=== PATIENT | male | born 1985 | race Caucasian/White ===

== ENCOUNTER 2018-11-08 07:36 | Outpatient (CLI) | payer OTHER ==
[2018-11-08] MEDS ORDERED: GADOBUTROL 15 MMOL/15 ML VIAL ONE (07:47)
[2018-11-08] MEDS ORDERED: GADOBUTROL 15 MMOL/15 ML VIAL IVP ONE (08:39)
--- NOTE | 2018-11-08 16:10 | MRI Report ---
Reason: OTHER SYMPTOMS SIGN INVOLVING THE NERVOUS SYSTEM Procedure Date: 11/08/2018 Accession Number: [id number] / [id number] Procedure: MRI - Brain W/WO CPT Code: FULL RESULT: EXAM: MRI BRAIN WITHOUT AND WITH CONTRAST EXAM DATE: 11/08/2018 08:41 AM. CLINICAL HISTORY: ?Recurrent RLE weakness/paresthesia. Intermittent monocular vision. Focal deficits on physical exam. COMPARISON: None. TECHNIQUE: Multiplanar, multisequence T1-weighted and fluid-sensitive MR sequences of the brain were performed. Sequences optimized for routine evaluation. Other: None. IV Contrast: . FINDINGS: Brain Volume: Normal for age. Parenchyma: No acute hemorrhage, mass, or infarct. There is a single focus of left frontal white matter change, within normal limits. No findings suspicious for demyelinating disease. No abnormal enhancement. Ventricles/Cisterns: No hydrocephalus. No abnormal extra-axial fluid collection or hemorrhage. Orbits: Symmetric and unremarkable. Sella Turcica: Unremarkable. IAC: Symmetric and unremarkable. Vasculature: Normal signal flow void is seen in the major arterial structures at the skull base. The dural sinuses are patent and enhance normally. Sinuses: No acute sinus disease. Bones: No focal pathologic appearing marrow signal changes. Other: None. IMPRESSION: 1. Normal brain MRI. [facility]
== END 2018-11-08 07:37 | disposition home or self-care (01) ==
LOC: DI 07:36
PROVIDERS: ATTEND Student in an Organized Health Care Education/Training Program
DX: R29.818 Other symptoms and signs involving the nervous system (principal)
CPT/HCPCS: 70553; A9585

== ENCOUNTER 2018-11-17 17:03 | Outpatient (CLI) | payer OTHER ==
[2018-11-17] MEDS ORDERED: GADOBUTROL 10 MMOL/10 ML VIAL ONE (18:27)
[2018-11-17] MEDS ORDERED: GADOBUTROL 10 MMOL/10 ML VIAL IVP ONE (18:47)
--- NOTE | 2018-11-21 08:30 | MRI Report ---
Reason: SYMPTOMS AND SIGNS INVOLVING THE NERVOUS SYSTEM Procedure Date: 11/17/2018 Accession Number: [id number] / [id number] Procedure: MRI - Shoulder RT W/WO CPT Code: FULL RESULT: MRI OF THE RIGHT BRACHIAL PLEXUS, WITH AND WITHOUT IV CONTRAST CLINICAL NOTE: Right upper limb pain, numbness and tingling. TECHNIQUE: Axial, coronal and sagittal T1, STIR, T2 weighted scans were obtained followed by postcontrast fat-saturated T1-weighted scans. 10 mL of intravenous Gadavist was administered. COMPARISON: None. FINDINGS: The brachial plexus appears unremarkable. The right and left axilla and infraclavicular regions appear symmetric. There is no abnormal enhancement. The visible cervical spine appears unremarkable. The right sternoclavicular joint also appears unremarkable. The visible soft tissues of the mediastinum, lungs and makeup. Unremarkable. IMPRESSION: No significant abnormality identified.
== END 2018-11-17 17:04 | disposition home or self-care (01) ==
LOC: DI 17:03
PROVIDERS: ATTEND Student in an Organized Health Care Education/Training Program
DX: R29.818 Other symptoms and signs involving the nervous system (principal)
CPT/HCPCS: 73223; A9585

== ENCOUNTER 2020-10-31 15:44 | Outpatient (CLI) | payer OTHER ==
[2020-10-31 15:43] VITALS: BP 111/79
--- NOTE | 2020-10-31 15:43 | SLEEP CARE CONSULTATION ---
Information from patient questionnaire entered by Mariza Lanier. I have reviewed and concur with the information entered by Mariza Lanier. This document represents the service I personally performed and the decisions made by me, Riddhi Zimmer ARNP. History of Present Illness Service Date and Time: 10/31/2020 1500 Reason for Visit: New patient Chief Complaint: reports: Unrefreshed sleep, Excessive daytime sleepiness, Frequent awakenings at night Date of Onset: 5 years Usual bedtime: 10 pm Time it takes to fall asleep: 5 - 10 minutes Snores at night: No Observed to quit breathing while asleep: No Sleeps alone due to snoring: No Number of times waking at night: 3 Reasons for waking at night: reports: Other (unknown reasons). denies: Choking, Snoring, Gasping for air Toss, Turn, or Twitch while sleeping: No Recalls having dreams: Yes (has lucid dreams, fatigue him) Usually gets out of bed at: 5:45 am Feels refreshed in the morning: No Morning headache: No Sleepy or fatigued during the day: Yes Ever fallen asleep while driving: No Takes day naps: No Dreams during day naps: Yes Prior sleep studies: No Additional HPI information: I had the pleasure of seeing YUNIER ARTEAGA today regarding the possibility of him having a sleep disorder. His current complaints are frequent night awakenings and unrefreshed sleep. He states about 3-4 times a night he will wake up for no apparent reason and then go back to sleep. He has not been told that he snores or has any pauses in breathing. He has not woke up gasping or choking for air. He kaur have some tingling in both arms on ulnar side for last 6 months. He has a history of a possible TIA and diagnosed with Carpal Tunnel. There is no family history of sleep apnea. - Parasomnia Symptoms Ever been unable to move upon waking from sleep: No Walks in sleep: No Talks in sleep: No Ever acted out dreams in sleep: No Ever felt weak in the knees when startled or emotional: Yes (occasional, has not fallen to ground) Bothered by creepy, crawly, restless sensations in legs: No Problems with memory or concentration: No Subjective Initial Thatcher Sleepiness Scale score: 11 (in 2020) Past Medical History Past Medical History: reports: Other (had TIA in 09/2018; carpal tunnel) Social History The patient's occupation is a Active . Patient is Single and lives in [place]. Have you smoked in the past 12 months: No Alcohol use: Yes Alcohol amount and frequency: 1-2 beers 2-3 times a week Caffeine use: Yes Caffeine amount and frequency: 24 oz coffee every morning Family History Family history of sleep disordered breathing: No Allergies and Home Medications Drug allergies reviewed: Yes (NKDA) Home medication list reviewed: Yes (no medications or supplements) Review of Systems Weight gain over past 5 years: 15 Cardiovascular: denies: high blood pressure Gastrointestinal: denies: heartburn Neurological: denies: headaches Psychiatric: denies: Attention Deficit Hyperactivity, anxiety, depression Ear/Nose/Throat: denies: tonsillectomy Endocrine: denies: thyroid disease Immunologic: denies: allergies to food or environment Physical Exam Blood Pressure: 111/79 Cuff size: wrist Heart Rate: 65 O2 Saturation: 93 Height: 5 ft 10 in Weight: 221 lb Body Mass Index: 31.7 BMI Classification: Obese Neck circumference: 15.5 (inches) Mouth and throat: narrow oropharynx Soft palate: long Hard palate: normal Uvula: normal Uvula visualization: 50% Mallampati Class II Tongue: enlarged in size with teeth amador on lateral edges Tonsils: 1+ Neck: normal w/o lymphadenopathy or thyromegaly Heart: regular rate and rhythm Lungs: clear bilaterally Impression and Plan 1. Suspected Obstructive Sleep Apnea-Hypopnea Syndrome, as suggested by a history of frequent awakening during the night, unrefreshed sleep, and excessive daytime sleepiness. Narrow oropharynx and obesity are common predisposing factors for obstructive sleep apnea-hypopnea syndrome. I recommend proceeding to polysomnography to confirm the diagnosis and to assess severity. If the patient has significant sleep disordered breathing, a manual CPAP titration study will also be performed to find the optimal treatment pressure. I informed the patient of what the sleep studies involve and after some discussion, obtained agreement to proceed. The pathophysiology of obstructive sleep apnea-hypopnea syndrome was discussed with the patient and health risks of cardiovascular and cerebrovascular disease if not treated. Risks of drowsy driving discussed in detail and patient advised to avoid long distance driving and to ice puller at the first sign of drowsiness. Patient agreed to plan. * Schedule polysomnography +- manual CPAP titration study and return in 1-2 weeks after the study to discuss result and initiate therapy. * Avoid long distance driving or driving when feeling sleepy. * Avoid alcohol, sedative and muscle relaxant around bedtime. * Attempt to lose weight. * Review instructions provided by trained office staff on how to prepare for the sleep study. * Return for follow-up after sleep study completed. Counseling Topics: Weight loss health impact Visit Type: In Office Time Spent with Patient (minutes): 30 Provider Statement: I spent 100% of the Face to Face Visit with the patient with greater than 50% spent counseling the patient and coordination of care.
== END 2020-10-31 15:45 | disposition home or self-care (01) ==
LOC: SC 15:44
PROVIDERS: ATTEND Nurse Practitioner Family
DX: G47.10 Hypersomnia, unspecified (principal); G47.8 Other sleep disorders; E66.9 Obesity, unspecified; Z68.31 Body mass index [BMI] 31.0-31.9, adult
CPT/HCPCS: 99203; 99212

== ENCOUNTER 2020-11-06 14:18 | Outpatient (CLI) | payer OTHER | END 2020-11-06 14:19 | disposition home or self-care (01) | LOC: SC 14:18 | PROVIDERS: ATTEND Nurse Practitioner Family | DX: G47.8 Other sleep disorders (principal); G47.10 Hypersomnia, unspecified; R53.83 Other fatigue; E66.9 Obesity, unspecified; Z68.31 Body mass index [BMI] 31.0-31.9, adult | CPT/HCPCS: 95806 ==